=== PATIENT | female | born 1985 | race African-American/Black ===

== ENCOUNTER 2023-11-20 19:05 | Inpatient (IN) | payer OTHER ==
[2023-11-20 20:26] VITALS: BMI 37.9
[2023-11-20 20:35] LABS: INR 0.99 (0.83-1.09); PROTHROMBIN TIME (PATIENT) 11.2 SEC (9.7-13.0)
[2023-11-20 20:37] LABS: BASO % 0.3 % (0-2.0); EOS % 2.5 % (0-4.5); HEMATOCRIT 36.9 % (32.4-45.2); HEMOGLOBIN 11.9 GM/dL (10.7-15.3); LYMPH % 16.8 % (8-40); MCH 25.7 pg (25.7-33.7); MCHC 32.4 g/dl (32.0-36.0); MEAN CELL VOLUME 79.3 fl (80-96); MEAN PLT VOLUME 9.8 fl (7.5-11.1); MONO % 11.4 % (3.8-10.2); PLATELET COUNT 197 10^3/uL (134-434); RBC 4.65 M/mm3 (3.60-5.2); RDW 16.2 % (11.6-15.6); WHITE BLOOD COUNT 8.7 K/mm3 (4.0-10.0)
[2023-11-20 20:38] LABS: ACTIVATED PTT 28.7 SECONDS (25.2-36.5)
[2023-11-20 20:49] LABS: POTASSIUM 3.9 mmol/L (3.5-5.1)
[2023-11-20 20:51] LABS: BLOOD UREA NITROGEN 5.8 mg/dL (7-18)
[2023-11-20 20:54] LABS: CREATININE 0.8 mg/dL (0.55-1.3)
[2023-11-20] MEDS ORDERED: OXYTOCIN 30 UNITS in 0.9% NS 30 UNIT/500 ML INFUS.BAG IVPB ONE (22:43)
[2023-11-20] MEDS: LACTATED RINGERS SOLUTION 1,000 ML/1,000 ML INFUS.BAG IV SCH (22:45)
[2023-11-20] MEDS: OXYTOCIN 30 UNITS in 0.9% NS 30 UNIT/500 ML INFUS.BAG IVPB SCH (22:50)
[2023-11-20] MEDS ORDERED: BUTORPHANOL TARTRATE 2 MG/ML VIAL ONE (23:38)
[2023-11-20] MEDS ORDERED: PROMETHAZINE HCL 25 MG/1 ML VIAL ONE (23:39)
[2023-11-20] MEDS: BUTORPHANOL TARTRATE 2 MG/ML VIAL IVPB ONE (23:45)
[2023-11-20] MEDS: PROMETHAZINE HCL 25 MG/1 ML VIAL IVPB ONE (23:45)
[2023-11-21] MEDS ORDERED: BUTORPHANOL TARTRATE 2 MG/ML VIAL ONE (04:15)
[2023-11-21] MEDS ORDERED: PROMETHAZINE HCL 25 MG/1 ML VIAL ONE (04:16)
[2023-11-21] MEDS: BUTORPHANOL TARTRATE 1 MG/ML VIAL IVPB ONE (04:20)
[2023-11-21] MEDS: PROMETHAZINE HCL 25 MG/1 ML VIAL IVPB ONE (04:20)
[2023-11-21] MEDS: CITRIC ACID/SODIUM CITRATE 30 ML UNIT-DOSE CUP PO ONE (10:35)
[2023-11-21] MEDS ORDERED: morphine SULFATE/PF 1 MG/2 ML (2cc Syringe - QUVA) ONE (10:39)
[2023-11-21] MEDS ORDERED: FENTANYL CITRATE/PF 50 MCG/ML VIAL ONE (10:39)
[2023-11-21] MEDS ORDERED: ACETAMINOPHEN 325 MG TABLET (FP) PO PRN (11:23)
[2023-11-21] MEDS ORDERED: ONDANSETRON 4 MG/2 ML VIAL IVPUSH PRN (11:23)
[2023-11-21] MEDS ORDERED: AZITHROMYCIN IVPB 500 MG/250 ML BAG IVPB ONE (12:08)
[2023-11-21] MEDS: IBUPROFEN 800 MG/8 ML IJ IVPB ONE (14:00)
[2023-11-21] MEDS ORDERED: ACETAMINOPHEN 1000 MG/100 ML BAG IVPB PRN (14:02)
[2023-11-21 14:24] LABS: CORD BASE EXCESS -10.2 mmol/L (0-2); CORD HCO3 21.2 mmHg (20-29); CORD PCO2 70.4 mmHg (30-78); CORD pH 7.097 (7.14-7.44)
[2023-11-21 14:25] LABS: CORD BASE EXCESS -13.1 mmol/L (0-2); CORD PCO2 55.3 mmHg (30-78); CORD pH 7.105 (7.14-7.44)
[2023-11-21] MEDS: OXYTOCIN 20 UNITS in 0.9% NS 20 UNIT/1,000 ML INFUS.BAG IV ONE (14:30)
[2023-11-21] MEDS ORDERED: OXYTOCIN 20 UNITS in 0.9% NS 20 UNIT/1,000 ML INFUS.BAG IV ONE (14:57)
[2023-11-21] MEDS: TRIAMCINOLONE ACET 40MG/1ML VIAL IM ONE (15:12)
[2023-11-21] MEDS: IBUPROFEN 600 MG TABLET (FP) PO PRN (21:00)
[2023-11-22 07:28] VITALS: RESP 18
[2023-11-22] MEDS ORDERED: oxyCODONE HCL 5 MG TABLET PO ONE (08:15)
[2023-11-22] MEDS: ACETAMINOPHEN 325 MG TABLET (FP) PO SCH (08:17)
[2023-11-22] MEDS: IBUPROFEN 600 MG TABLET (FP) PO SCH (10:01)
[2023-11-22] MEDS: diphenhydrAMINE HCL 25 MG CAPSULE (FP) PO PRN (10:14)
[2023-11-22] MEDS: SIMETHICONE 80 MG TAB.CHEW (FP) PO PRN (13:31)
[2023-11-22] MEDS: BISACODYL 10 MG SUPP.RECT PR PRN (18:30)
[2023-11-22] MEDS: oxyCODONE HCL 5 MG TABLET PO ONE (18:30)
[2023-11-22] MEDS: SENNOSIDES/DOCUSATE COMBO (SENNA PLUS) TABLET (UD) PO PRN (20:41)
[2023-11-22] MEDS: oxyCODONE HCL 5 MG TABLET PO PRN (23:38)
[2023-11-23 09:51] VITALS: BP 120/78; PULSE 102; TEMP 97.8
== END 2023-11-23 13:20 | disposition home or self-care (01) | DRG 788 ==
LOC: JLDR 19:05 → J3W 11-21 15:40
PROVIDERS: ADMIT Obstetrics & Gynecology; ATTEND Obstetrics & Gynecology
PROC: 10D00Z1 Extraction of Products of Conception, Low, Open Approach (ICD-10-PCS; principal; 2023-11-21)
DX: O34.211 Maternal care for low transverse scar from previous cesarean delivery (principal); O24.424 Gestational diabetes mellitus in childbirth, insulin controlled; O66.41 Failed attempted vaginal birth after previous cesarean delivery; Z3A.39 39 weeks gestation of pregnancy; Z37.0 Single live birth
CPT/HCPCS: 36415; 36600; 59409; 80048; 82803; 82962; 85025; 85610; 85730; 86780; 86850; 86900; 86901; 88307-TC

== ENCOUNTER 2023-12-01 20:27 | Observation (INO) | payer OTHER, BC ==
[2023-12-01 20:44] VITALS: BMI 35.2
[2023-12-01] MEDS ORDERED: METOCLOPRAMIDE HCL INJECTION 10 MG/2 ML VIAL ONE (21:34)
[2023-12-01] MEDS ORDERED: ACETAMINOPHEN INJECTION 100 ML IVPB ONE (21:34)
[2023-12-01] MEDS ORDERED: MAGNESIUM SULFATE IN WATER 2 GM/50 ML IVPB IVPB ONE (21:40)
[2023-12-01] MEDS: ACETAMINOPHEN 1000 MG/100 ML BAG IVPB ONE (21:50)
[2023-12-01] MEDS: LACTATED RINGERS SOLUTION 1000 ML INFUS.BAG IV ONE (21:50)
[2023-12-01] MEDS: MAGNESIUM SULF 50% (8.12 MEQ/2 ML-1 GM VIAL) IVPB ONE (21:50)
[2023-12-01 21:51] LABS: BASO % 0.7 % (0-2.0); EOS % 2.3 % (0-4.5); HEMATOCRIT 41.4 % (32.4-45.2); HEMOGLOBIN 13.5 GM/dL (10.7-15.3); LYMPH % 17.8 % (8-40); MCH 25.7 pg (25.7-33.7); MCHC 32.5 g/dl (32.0-36.0); MEAN PLT VOLUME 8.8 fl (7.5-11.1); NEUT % 70.2 % (42.8-82.8); PLATELET COUNT 260 10^3/uL (134-434); RBC 5.23 M/mm3 (3.60-5.2); WHITE BLOOD COUNT 8.3 K/mm3 (4.0-10.0)
[2023-12-01] MEDS: MAGNESIUM 4GM/H20 - 4 GM/100 ML IVPB IVPB ONE (22:00)
[2023-12-01] MEDS ORDERED: MAGNESIUM 4GM/H20 - 4 GM/100 ML IVPB IVPB ONE (22:02)
[2023-12-01 22:10] LABS: POTASSIUM 4.3 mmol/L (3.5-5.1)
[2023-12-01 22:12] LABS: CALCIUM 8.8 mg/dL (8.5-10.1)
[2023-12-01 22:13] LABS: ALBUMIN 3.1 g/dl (3.4-5.0); BLOOD UREA NITROGEN 14.4 mg/dL (7-18)
[2023-12-01 22:16] LABS: CREATININE 0.8 mg/dL (0.55-1.3)
[2023-12-01 22:17] LABS: BILIRUBIN,TOTAL 0.3 mg/dL (0.2-1)
[2023-12-01 22:18] LABS: TOT PROT 7.1 g/dl (6.4-8.2)
[2023-12-01 22:18] LABS: EPI CELLS 3 /uL (0-25.1); HYALINE CASTS 0 /uL (0-3.1); URINE APPEARANCE CLEAR; URINE BACTERIA 47 /uL (0-1359); URINE BILIRUBIN NEGATIVE (NEGATIVE); URINE COLOR YELLOW; URINE GLUCOSE (UA) NEGATIVE (NEGATIVE); URINE KETONE NEGATIVE (NEGATIVE); URINE LEUK ESTERASE NEGATIVE (NEGATIVE); URINE NITRITE NEGATIVE (NEGATIVE); URINE PROTEIN NEGATIVE (NEGATIVE); URINE RBC 65 /uL (0-23.9); URINE UROBILINOGEN 0.2 mg/dL (0.2-1.0); URINE WBC 4 /uL (0-25.8)
[2023-12-01] MEDS: METOCLOPRAMIDE HCL INJECTION 10 MG/2 ML VIAL IVPB ONE (23:00)
[2023-12-01 23:34] VITALS: RESP 18
[2023-12-02] MEDS: NIFEdipine E.R. 30 MG TABLET PO SCH (00:06)
[2023-12-02] MEDS: LABETALOL HCL 200 MG TABLET (FP) PO SCH (01:05)
[2023-12-02] MEDS: ACETAMINOPHEN 325 MG TABLET (FP) PO PRN (05:42)
[2023-12-02 10:07] VITALS: TEMP 98.6
[2023-12-02 13:07] VITALS: PULSE 86
[2023-12-02 15:43] VITALS: BP 127/83
[2023-12-02] MEDS: SENNOSIDES/DOCUSATE COMBO (SENNA PLUS) TABLET (UD) PO ONE (16:49)
== END 2023-12-02 17:40 | disposition home or self-care (01) ==
LOC: JER 20:27 → JERBED 23:04 → J3W 23:36
PROVIDERS: ADMIT Obstetrics & Gynecology; ATTEND Obstetrics & Gynecology
PROC: 3E033NZ Introduction of Analgesics, Hypnotics, Sedatives into Peripheral Vein, Percutaneous Approach (ICD-10-PCS; principal; 2023-12-01)
PROC: 3E0337Z Introduction of Electrolytic and Water Balance Substance into Peripheral Vein, Percutaneous Approach (ICD-10-PCS; 2023-12-01)
PROC: 3E033GC Introduction of Other Therapeutic Substance into Peripheral Vein, Percutaneous Approach (ICD-10-PCS; 2023-12-01)
DX: I10 Essential (primary) hypertension (principal); R51.9 Headache, unspecified; Z98.890 Other specified postprocedural states; J45.909 Unspecified asthma, uncomplicated; Z86.32 Personal history of gestational diabetes
CPT/HCPCS: 36415; 80053; 81003; 82570; 83735; 84156; 85025; 86850; 86900; 86901; 87086; 93005; 93010; 99285-25; G0378; J0131